=== PATIENT | female | born 1980 | race Caucasian/White ===

== ENCOUNTER 2024-06-08 16:45 | Emergency (ER) | payer OTHER ==
--- NOTE | 2024-06-08 17:05 | ED Physician Documentation ---
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 Today she noticed some purulent foul-smelling drainage under the Steri-Strips. No fevers. No increasing pain. PD PAST MEDICAL HISTORY - Past Medical History Past Medical History: Yes Other Past Medical History: skin cancer - Past Surgical History Past Surgical History: Yes Derm: Skin cancer surgery - Present Medications Home Medications: Ambulatory Orders Medication Instructions Recorded Confirmed Bacitracin Zinc Oint 1 applic TOP BID #1 each 06/08/24 cephALEXin [Keflex] 500 mg PO Q6H #28 cap 06/08/24 - Social History Does the pt smoke?: No Smoking Status: Never smoker Does the pt drink ETOH?: No Does the pt have substance abuse?: No - Immunizations Immunizations are current?: Yes - POLST Patient has POLST: No PD ED PE NORMAL - Vitals Vital signs reviewed: Yes - General General: Alert and oriented X 3, No acute distress - Extremities Extremities: Other (She has a complex incision on the right lateral thigh with Steri-Strips in place over it which were gingerly removed. Underneath it there was a V shaped incision with a small area of skin sloughing at 1 end and at the base of purulence there. No spreading cellulitis. Culture was obtained.) - Neuro Neuro: Alert and oriented X 3, Normal speech Results - Vitals Vitals: Vital Signs - 24 hr 06/08/24 16:57 Temperature 36.5 C Heart Rate 83 Respiratory 20 Rate Blood Pressure 117/79 O2 Saturation 97 Oxygen O2 Source Room air Departure - Departure Disposition: Home, Self Care Clinical Impression: Encounter for wound care, Wound infection Condition: Good Record reviewed to determine appropriate education?: Yes Instructions: ED Wound Care Prescriptions: Bacitracin Zinc Oint 1 applic TOP BID #1 each cephALEXin [Keflex] 500 mg PO Q6H #28 cap Comments: I sent your prescription electronically to the [facility] in [place]. It does look like you have a mild wound infection and there was an area of skin that had sloughed off. For wound care you can wash it with soap and water in the shower and then blot it dry, apply bacitracin ointment and then a nonstick dressing such as a Telfa dressing and either tape or a loose wrap. We are performing a wound culture, the results should be done in 48-72 hours. If antibiotic change is necessary we will call you. Return if worse in the meantime, especially if you develop increased pain, fevers, cannot keep down the medication. Otherwise follow-up with your physician in approximately 2-3 days. If you need to change the pharmacy the number here is [phone]. Forms: PCP List
[2024-06-08 17:07] VITALS: BP 117/79; O2SAT 97
[2024-06-08] MEDS: cephALEXin 250 MG CAPSULE PO STA (17:20)
[2024-06-08] MEDS: BACITRACIN ZINC OINT 1 PACKET TOP STA (17:20)
--- NOTE | 2024-06-11 19:37 | ED Physician Documentation ---
ED Addendum - Addendum Addendum: 06/11/24 19:37 Called patient to discuss culture results and left voicemail to call back. She grew Klebsiella and Pseudomonas. The Klebsiella should be sensitive to the Keflex, but the Pseudomonas would not be expected to be. 06/11/24 20:41 Spoke with pt , not much improved. Rx cipro 500mg po bid #14 to [facility].
== END 2024-06-08 17:32 | disposition home or self-care (01) ==
LOC: ED 16:45
DX: T81.41XA Infection following a procedure, superficial incisional surgical site, initial encounter (principal)
CPT/HCPCS: 87070; 87077; 87181; 87205; 99283; A9270

== ENCOUNTER 2024-06-22 07:00 | Outpatient (CLI) | payer OTHER | END 2024-06-22 23:59 | disposition home or self-care (01) | LOC: LAB.S 07:00 | PROVIDERS: ATTEND Registered Nurse | DX: S81.801A Unspecified open wound, right lower leg, initial encounter (principal) | CPT/HCPCS: 81599; 87070; 87106; 87181; 87205 ==